=== PATIENT | male | born 1955 | race Caucasian/White ===

== ENCOUNTER 2023-01-20 07:38 | Outpatient (REF) | payer MEDICARE, SELFPAY ==
[2023-01-20 15:55] LABS: Occult Blood Negative
== END 2023-01-20 07:39 | disposition home or self-care (01) ==
LOC: LAB 07:38
PROVIDERS: PCP Family Medicine; Visit Provider Family Medicine
DX: D64.9 Anemia, unspecified (principal); Z12.11 Encounter for screening for malignant neoplasm of colon
CPT/HCPCS: G0328

== ENCOUNTER 2025-02-23 09:56 | Outpatient (OUT) | payer MEDICARE, SELFPAY ==
--- NOTE | 2025-02-23 | XR_ITS ---
The [address] [address] Patient Name: ANDRADE PANIAGUA MRN: [id number] date: 1955 Sex: M Assigned Patient Location: RAD Current Patient Location: Accession/Order Number: [id number] Exam Date: 02/23/2025 10:02 Report Date: 02/23/2025 12:15 At the request of: SHEBA FOSTER DO Procedure: XR knee LT 4V CLINICAL DATA: Left knee pain after playing pickle ball LEFT KNEE - 4 views COMPARISON: None Weightbearing AP, lateral, tunnel and patellar views were obtained. No acute fracture or dislocation is identified. There is no disproportionate joint space narrowing. No patellar subluxation is seen. There is minimal marginal spurring, greatest at the posterior patella. There is a trace amount of joint fluid. No soft tissue swelling is seen. XR/XR knee LT 4V IMPRESSION: MINOR DEGENERATIVE CHANGE. NO ACUTE BONY INJURY. RIGHT KNEE - 2 views COMPARISON: None Weightbearing AP and patellar views were obtained. No acute fracture or dislocation is identified. There is lateral subluxation of the patella where there is also slight narrowing at the lateral patellofemoral joint compartment. The tibiofemoral joint compartments are maintained. There is minor marginal spurring. No soft tissue swelling is seen. IMPRESSION: DEGENERATIVE CHANGE. Impression dictated by: Korina Gao M.D. 02/23/2025 12:15 PM Dictation Location: [place] [address] Electronically authenticated by: [id number] Y Date: 02/23/2025 12:15
--- NOTE | 2025-02-23 | XR_ITS ---
The [address] [address] Patient Name: ANDRADE PANIAGUA MRN: [id number] date: 1955 Sex: M Assigned Patient Location: RAD Current Patient Location: Accession/Order Number: [id number] Exam Date: 02/23/2025 10:02 Report Date: 02/23/2025 12:15 At the request of: SHEBA FOSTER DO Procedure: XR knee LT 4V CLINICAL DATA: Left knee pain after playing pickle ball LEFT KNEE - 4 views COMPARISON: None Weightbearing AP, lateral, tunnel and patellar views were obtained. No acute fracture or dislocation is identified. There is no disproportionate joint space narrowing. No patellar subluxation is seen. There is minimal marginal spurring, greatest at the posterior patella. There is a trace amount of joint fluid. No soft tissue swelling is seen. XR/XR knee RT 2V IMPRESSION: MINOR DEGENERATIVE CHANGE. NO ACUTE BONY INJURY. RIGHT KNEE - 2 views COMPARISON: None Weightbearing AP and patellar views were obtained. No acute fracture or dislocation is identified. There is lateral subluxation of the patella where there is also slight narrowing at the lateral patellofemoral joint compartment. The tibiofemoral joint compartments are maintained. There is minor marginal spurring. No soft tissue swelling is seen. IMPRESSION: DEGENERATIVE CHANGE. Impression dictated by: Korina Gao M.D. 02/23/2025 12:15 PM Dictation Location: [place] [address] Electronically authenticated by: [id number] Y Date: 02/23/2025 12:15
--- OUTSIDE RECORDS SUMMARY | 2025-02-23 09:58 | XMS_ITS | Clinical Summary ---
Author Organization [facility] Healthcare Address [address] [place] [address] Care Team Providers Care Social Media Content Manager Name Role Phone Unavailable Primary Care Provider Unavailabl e Social History Tobacco Use Types Packs/Day Years Used Date Smoking Tobacco: Never Assessed Sex and Gender Information Value Date Recorded Sex Assigned at Not on file Legal Sex Male 6:35 PM EDT Gender Identity Not on file Sexual Orientation Not on file Last Filed Vital Signs Vital Sign Reading Time Taken Comments Blood Pressure 126/82 07/12/2020 12:00 PM EST Pulse - - Temperature - - Respiratory Rate - - Oxygen Saturation - - Inhaled Oxygen Concentration - - Weight 90.7 kg (200 lb) 07/12/2020 12:00 PM EST Height 170.2 cm (5' 7 ) 07/12/2020 12:00 PM EST Body Mass Index 31.32 07/12/2020 12:00 PM EST Plan of Treatment Not on file Insurance [facility] MEDIC[facility] [employer]VANTAGE
== END 2025-02-23 09:57 | disposition home or self-care (01) ==
LOC: RAD 09:56
PROVIDERS: PCP Family Medicine; Visit Provider Physician Assistant
DX: M25.562 Pain in left knee (principal); M17.11 Unilateral primary osteoarthritis, right knee
CPT/HCPCS: 73560; 73564

== ENCOUNTER 2025-03-01 10:53 | Outpatient (RCR) | payer MEDICARE, SELFPAY | END 2025-03-28 14:19 | disposition home or self-care (01) | LOC: PT 10:53 | PROVIDERS: PCP Family Medicine; Visit Provider Physician Assistant | DX: M23.204 Derangement of unspecified medial meniscus due to old tear or injury, left knee (principal) | CPT/HCPCS: 97110; 97112; 97161; 97530 ==